=== PATIENT | female | born 1980 | race Caucasian/White ===

== ENCOUNTER 2017-07-31 20:30 | Outpatient (CLI) | payer BC | END 2017-07-31 20:31 | disposition home or self-care (01) | LOC: SLEEPLAB 20:30 | PROVIDERS: ATTEND Family Medicine | DX: G47.33 Obstructive sleep apnea (adult) (pediatric) (principal); R06.83 Snoring; R51 Headache | CPT/HCPCS: 95811 ==

== ENCOUNTER 2017-08-19 09:23 | Outpatient (CLI) | payer BC ==
[2017-08-19 10:25] LABS: #Eosinphils 0.2 thou/uL (0.0-0.7); #Monocytes 0.4 thou/uL (0.11-0.59); #Neutrophils 8.2 thou/uL (1.40-6.50); %Basophils 0.3 % (0.0-1.0); %Eosinophils 2.2 % (0.0-10.0); %Lymphocytes 18.6 % (21.0-51.0); Hematocrit 41.1 % (36.0-47.0); Red Blood Cell (RBC) Count 4.82 mill/uL (4.20-5.40)
== END 2017-08-19 09:24 | disposition home or self-care (01) ==
LOC: LABBT 09:23
PROVIDERS: ATTEND Surgery
DX: Z01.812 Encounter for preprocedural laboratory examination (principal); K64.8 Other hemorrhoids
CPT/HCPCS: 84703; 85025

== ENCOUNTER 2017-08-23 06:03 | Day surgery (SDC) | payer BC ==
[2017-08-19 09:35] VITALS: BMI 34.4
[2017-08-23] MEDS ORDERED: cefOXitin 2 GM, Syringe 1 ML in Sterile Water 10 ML SLOW IVP SCH (06:15)
[2017-08-23] MEDS ORDERED: cefOXitin 2 GM in Sodium Chloride 0.9% 100 ML IVPB SCH (06:30)
[2017-08-23] MEDS ORDERED: Lidocaine 2% w/Epinephrine 1:200K 20 ML VIAL ONE (06:35)
[2017-08-23] MEDS ORDERED: Maxitrol 0.1% Opth Oint 3.5 GM TUBE ONE (06:44)
[2017-08-23] MEDS ORDERED: Bacitracin Zinc Ointment 30 gm TUBE ONE (06:45)
[2017-08-23] MEDS ORDERED: Fentanyl 100 MCG/2 ML VIAL ONE ×2 (07:02→09:31)
[2017-08-23] MEDS ORDERED: Midazolam HCl 2 mg/2 ml Vial ONE (07:39)
[2017-08-23] MEDS ORDERED: Bupivacaine PF 0.5% 30 ML VIAL ONE (08:30)
--- NOTE | 2017-08-23 09:01 | HP ---
CHIEF COMPLAINT: Prolapsing hemorrhoids. HISTORY OF PRESENT ILLNESS: The patient is a 37-year-old female who has had prolapsing hemorrhoids since she gave to children. She just recently had a colonoscopy, no family history of colon c ancer. PAST MEDICAL HISTORY: Migraine headaches, ADHD, anxiety, gestational diabetes, vitamin D deficiency . PAST SURGICAL HISTORY: She has had a D\T\C. MEDICATIONS: Lexapro and Imitrex. FAMILY HISTORY: Father has heart disease. Mother has diabetes. SOCIAL HISTORY: She is . No tobacco. She does drink alcohol occasionally. ALLERGIES: LATEX and PAPAYA. PHYSICAL EXAMINATION: VITAL SIGNS: Height 5 foot 7, weight 236, body mass index 36.9. Blood pressure is 119/82, pulse 92 . GENERAL: She is a well-developed, well-nourished female in no apparent distress. HEENT: Unremarkable. LUNGS: Clear. HEART: Regular rate and rhythm. ABDOMEN: Soft, nontender, good bowel sounds. She has prolapsing grade III hemorrhoids. There are no palpable masses. ASSESSMENT: Grade III hemorrhoids. PLAN: PPH stapled hemorrhoidectomy. CONSENT: I have discussed the planned procedure as well as risk of bleeding, infection, injury to s phincter mechanism. She understands and gives informed consent.
--- NOTE | 2017-08-23 09:40 | OP ---
PREOPERATIVE DIAGNOSIS: Grade III hemorrhoids. SURGEON: Gautam Angeles M.D. PROCEDURE PERFORMED: PPH stapled hemorrhoidectomy. INDICATIONS: This is a 37-year-old female who has been having prolapsing bleeding hemorrhoids since she last delivered baby. She had a colonoscopy, it was otherwise unremarkable. FINDINGS: Grade III hemorrhoids. PROCEDURE IN DETAIL: After informed consent was obtained, patient was taken to the operating room a nd given general endotracheal anesthesia. She was placed in the prone jackknife position. Her butt ock cheeks were spread apart with tape. Local anesthesia with 0.5% Marcaine was infiltrated as a fo ur quadrant anal block. The anal retractor was inserted and sutured in place with a 0 silk suture. Then, the pursestring guide was inserted and a pursestring of 2-0 Prolene placed circumferentially about a centimeter below the dentate line circumferentially. The stapler was inserted fully and ope jennifer with the anvil beyond the pursestring. The strings were brought through the channels on the sta pler, tied as a knot and held closed as the stapler was closed. Then the stapler was fired, held fo r 30 seconds, released for 30 seconds, and then removed. The specimen inspected. There was no musc le fiber sent to pathology for further analysis. One area of bleeding was found. It was controlled with a [id number] of 3-0 chromic. Hemostasis assured. Gelfoam was inserted within the anal c anal. Sterile bandage applied. The patient tolerated the procedure well and transferred to [facility] good condition. Sponge and needle count verified correct x2.
[2017-08-23] MEDS ORDERED: Ondansetron HCl/PF 4 MG/2 ML Vial IVP PRN (09:55)
[2017-08-23] MEDS ORDERED: Promethazine HCl 25 MG/ML VIAL IM/IV PRN (09:55)
[2017-08-23] MEDS ORDERED: Non-Formulary Medication 1 EACH PO PRN (09:55)
[2017-08-23] MEDS ORDERED: Morphine 4 MG/ML Carpuject ONE (11:11)
[2017-08-23] MEDS ORDERED: HYDROcodone/Acetaminophen 10/325 mg Tablet ONE (11:23)
== END 2017-08-23 12:00 | disposition home or self-care (01) ==
LOC: SDC 06:03
PROVIDERS: ATTEND Surgery
PROC: 06BY0ZC Excision of Hemorrhoidal Plexus, Open Approach (ICD-10-PCS; principal; 2017-08-23)
DX: K64.2 Third degree hemorrhoids (principal); G43.909 Migraine, unspecified, not intractable, without status migrainosus; F90.9 Attention-deficit hyperactivity disorder, unspecified type; F41.9 Anxiety disorder, unspecified; Z91.040 Latex allergy status; Z91.018 Allergy to other foods; Z79.899 Other long term (current) drug therapy; Z98.890 Other specified postprocedural states
CPT/HCPCS: 96374; A4216; J0694; J2250; J2270; J3010; J7050; S0020

== ENCOUNTER 2017-12-31 17:27 | Outpatient (CLI) | payer BC ==
--- NOTE | 2017-12-31 18:05 | RAD ---
TWO VIEW CHEST: 12/31/17 HISTORY: Bronchopneumonia. No comparison. There is some patchy/streaky density in the left mid lung which appears to be anterior on the lateral view which may represent subtle infiltrate. There is no consolidation. No effusion. The right lung a ppears clear. IMPRESSION: Question left lung infiltrate anteriorly. Suggest followup. POS: [facility]
== END 2017-12-31 17:28 | disposition home or self-care (01) ==
LOC: SCSRAD 17:27
PROVIDERS: ATTEND Family Medicine
DX: J18.0 Bronchopneumonia, unspecified organism (principal)
CPT/HCPCS: 71046

== ENCOUNTER 2018-04-08 16:09 | Emergency (ER) | payer BC ==
[2018-04-08] MEDS ORDERED: Famotidine/PF 20 mg/2ml Vial ONE (18:05)
[2018-04-08] MEDS ORDERED: Ondansetron HCl/PF 4 MG/2 ML Vial ONE (18:05)
[2018-04-08 18:06] LABS: #Lymphocytes 1.3 thou/uL (1.20-3.40); #Monocytes 0.4 thou/uL (0.11-0.59); #Neutrophils 7.9 thou/uL (1.40-6.50); %Basophils 0.3 % (0.0-1.0); %Eosinophils 0.3 % (0.0-10.0); %Lymphocytes 13.6 % (21.0-51.0); %Monocytes 3.8 % (0.0-10.0); %Neutrophils 81.9 % (42.0-75.0); Hemoglobin 12.8 g/dL (12.0-16.0); Mean Corpuscular HGB CONC 33.2 g/dL (32.0-36.0); Mean Corpuscular Hemoglobin 26.8 pg (27.0-31.0); Mean Corpuscular Volume 80.8 fL (78.0-98.0); Mean Platelet Volume 10.2 fL (7.4-10.4); Platelet Count 211 thou/uL (130-400); RBC Distribution Width 11.6 % (11.5-14.5); Red Blood Cell (RBC) Count 4.78 mill/uL (4.20-5.40); White Blood Cell (WBC) Count 9.6 thou/uL (4.8-10.8)
[2018-04-08 18:18] LABS: ALT (SGPT) 20 U/L (8-55); AST (SGOT) 17 U/L (5-34); Albumin 3.9 g/dL (3.5-5.0); Alkaline Phosphatase 84 U/L (40-150); Anion Gap 14 mmol/L (10-20); BHCG - Serum Negative (NEGATIVE); BUN (Urea Nitrogen) 13 mg/dL (7.0-18.7); Bilirubin, Total 0.3 mg/dL (0.2-1.2); Calc. Creatinine Clearance 0 mL/min (70-130); Carbon Dioxide 26 mmol/L (22-29); Chloride 103 mmol/L (98-107); Estimated GFR-MDRD 84; Globulin 3.4 g/dL (2.4-3.5); Glucose 95 mg/dL (70-105); Lipase 23 U/L (8-78); Potassium 3.9 mmol/L (3.5-5.1); Pregs Control Background? CLEAR/WHITE (CLR/WHITE); Pregs Control Bar Appear? YES (CONTROL BAR); Protein, Total 7.3 g/dL (6.0-8.3); Sodium 139 mmol/L (136-145)
[2018-04-08] MEDS ORDERED: Acetaminophen 500 MG TAB ONE (20:11)
[2018-04-08 20:21] LABS: Bilirubin Negative (Negative); Blood, Urine Negative (Negative); Clarity Clear (Clear); Glucose, Urine (Dipstick) Negative (Negative); Leukocyte Negative (Negative); Nitrite Negative (Negative); Protein, Urine (Dipstick) 30 mg/dL (Neg-Trace); Specific Gravity, Urine 1.025 (1.005-1.030); Urobilinogen 0.2 mg/dL (0.2-1.0)
[2018-04-08 20:22] LABS: Bacteria/HPF Rare-Few HPF (None Seen); RBC/HPF None Seen HPF (0-3); WBC/HPF None Seen HPF (0-3)
[2018-04-08] MEDS ORDERED: Promethazine HCl 25 MG/ML VIAL ONE (20:33)
== END 2018-04-08 20:40 | disposition home or self-care (01) ==
LOC: SCSER 16:09
DX: R11.2 Nausea with vomiting, unspecified (principal); R19.7 Diarrhea, unspecified; R50.9 Fever, unspecified; F41.9 Anxiety disorder, unspecified; F43.10 Post-traumatic stress disorder, unspecified; F32.9 Major depressive disorder, single episode, unspecified; J45.909 Unspecified asthma, uncomplicated; K21.9 Gastro-esophageal reflux disease without esophagitis; G43.909 Migraine, unspecified, not intractable, without status migrainosus
CPT/HCPCS: 80053; 81003; 81015; 83605; 83690; 84703; 85025; 96361; 96374; 96375; J2405; J2550; S0028

== ENCOUNTER 2018-12-25 10:11 | Outpatient (CLI) | payer BC ==
--- NOTE | 2018-12-25 11:14 | ULT ---
ABDOMINAL ULTRASOUND: HISTORY: A 38-year-old female with a history of right upper quadrant pain. FINDINGS: Multiple longitudinal and transverse images of the abdomen are obtained using a multihertz curvilinea r transducer. Real-time, color flow, and spectral waveform Doppler analysis demonstrates fibrofatty changes seen in the liver. No evidence of hepatic parenchymal mass is seen. The gallbladder is unre markable. Normal hepatopetal flow is seen in the portal system. The spleen is unremarkable. Visualized portions of the pancreas are unremarkable. Both kidneys are visualized and are of normal contour, axis, and size with no evidence of masses or l esions. The right kidney measures 10.5 x the left 10 cm. No definite evidence of ascites seen. Abdominal aorta and inferior vena cava are unremarkable. IMPRESSION: Normal abdominal ultrasound. POS: [facility]
== END 2018-12-25 10:12 | disposition home or self-care (01) ==
LOC: SCSULT 10:11
PROVIDERS: ATTEND Family Medicine
DX: R10.821 Right upper quadrant rebound abdominal tenderness (principal)
CPT/HCPCS: 76700

== ENCOUNTER 2020-05-18 07:42 | Outpatient (CLI) | payer BC ==
--- NOTE | 2020-05-18 11:01 | NM ---
HEPATOBILIARY SCAN: HISTORY:Right upper quadrant pain. No gallstones on ultrasound of 12/25/2018 RADIOPHARMACEUTICAL: 5.2 mCi Technetium 99m Mebrofenin injected intravenously FINDINGS: There is normal tracer extraction by the liver with normal excretion into the biliary tracts and smal l bowel loops and normal filling of the gallbladder. The calculated gallbladder ejection fraction following an oral fatty meal measures 72%. IMPRESSION:Normal exam.
== END 2020-05-18 07:43 | disposition home or self-care (01) ==
LOC: NM 07:42
PROVIDERS: ATTEND Family Medicine
DX: R10.11 Right upper quadrant pain (principal)
CPT/HCPCS: 78227; A9537